=== PATIENT | female | born 1980 ===

== ENCOUNTER 2020-08-04 22:17 | Outpatient (REF) | payer BC, SELFPAY ==
[2020-08-07 21:08] LABS: COVID-19 RT-PCR UVMMC Result Negative (Negative)
== END 2020-08-04 22:37 ==
LOC: NCHCN 22:17
PROVIDERS: PCP Nurse Practitioner Family; Visit Provider Nurse Practitioner Family
DX: Z20.828 Contact with and (suspected) exposure to other viral communicable diseases (principal)
CPT/HCPCS: U0003

== ENCOUNTER 2021-04-10 13:45 | Outpatient (REF) | payer BC, SELFPAY ==
[2021-04-10 20:38] LABS: Abs Immature Grans 0.01 10^3/uL (0.0-0.06); Absolute Basophil Count 0.02 10^3/uL (0.0-0.2); Absolute Eosinophil Count 0.05 10^3/uL (0.0-0.7); Absolute Lymphocyte Count 1.48 10^3/uL (1.2-3.4); Absolute Neutrophil Count 4.05 10^3/uL (1.2-6.7); Basophils % 0.3; Eosinophils % 0.8; HCT 39.1 % (36.0-46.0); HGB 13.3 g/dL (11.2-15.7); Immature Grans % 0.2; Lymphocytes % 23.8; MPV 10.5 fL (8.0-11.0); Monocytes % 9.7; Neutrophils % 65.2; Nucleated RBC 0 %; Platelet Count 185 10^3/uL (130-400); RBC 4.16 10^6/uL (3.93-5.22); RDW 11.5 % (11.7-14.6); RDW-SD 39.2 fL; WBC 6.21 10^3/uL (4.4-10.8)
[2021-04-12 13:15] LABS: Lyme Ab w Rflx to Lyme Confirm Positive (Negative)
[2021-04-13 07:48] LABS: Lyme IgG Ab Positive (Negative); Lyme IgM Ab Positive (Negative)
== END 2021-04-10 13:46 | disposition home or self-care (01) ==
LOC: NCHCN 13:45
PROVIDERS: PCP Nurse Practitioner Family; Visit Provider Family Medicine
DX: L03.116 Cellulitis of left lower limb (principal); M79.18 Myalgia, other site
CPT/HCPCS: 86617; 85025; 86618